=== PATIENT | male | born 1965 | race Caucasian/White ===

== ENCOUNTER 2017-12-20 12:39 | Emergency (ER) | payer OTHER ==
[~2017-12-20] VITALS: Ht 177.8 cm; Wt 81.7 kg
== END 2017-12-20 13:17 | disposition home or self-care (01) ==
LOC: ED 12:39
DX: M79.671 Pain in right foot (principal); M79.672 Pain in left foot; G89.29 Other chronic pain

== ENCOUNTER → 2020-06-17 | Emergency (ER) | payer OTHER ==
[~2020-06-17] VITALS: Ht 177.8 cm; Wt 81.7 kg
[~2020-06-17] MED LIST: FLOVENT HFA12 G1 INH; RISPERDAL1 MG PO; TRAZODONE HCL50 MG PO
== END ==
LOC: ED 16:05
DX: Z00.8 Encounter for other general examination (principal); I10 Essential (primary) hypertension; F17.200 Nicotine dependence, unspecified, uncomplicated; Z91.018 Allergy to other foods; Z79.899 Other long term (current) drug therapy
CPT/HCPCS: 80053; 80176; 81001; 84443; 85025; 99283; G0480

== ENCOUNTER 2020-06-19 17:42 | Emergency (ER) | payer OTHER ==
[~2020-06-19] VITALS: Ht 177.8 cm; Wt 81.7 kg
[~2020-06-19 17:42] MED LIST changes: -RISPERDAL1 MG PO; -TRAZODONE HCL50 MG PO
--- OUTSIDE RECORDS SUMMARY | 2020-06-19 17:44 | XMS ---
PreManage Notification: CHRISTIANO SCHRADER Security [employer] Events No recent Security Events currently on file CRITERIA MET - [facility] - 2 Visits in 30 Days CARE PROVIDERS There are no care providers on record at this time. William has no Care Guidelines for this patient. [place] [facility] MO[facility] NOTE: Visits indicate total known visits. ED/C VISIT TRACKING (12 MO.) 06/19/2020 17:[address] [facility] [place] TYPE: Emergency COMPLAINT: - MEDICAL CLEARANCE 06/17/2020 16:05 [facility] [place] TYPE: Emergency COMPLAINT: - MEDICAL CLEARANCE INPATIENT VISIT TRACKING (12 MO.) No inpatient visits to display in this time frame [email or web address]
[2020-06-19] MEDS ORDERED: RISPERDAL1 MG PO (17:58)
[2020-06-19] MEDS ORDERED: TRAZODONE HCL50 MG PO (17:58)
== END 2020-06-19 21:16 | disposition short-term general hospital (02) ==
LOC: ED 17:42
DX: F20.9 Schizophrenia, unspecified (principal); I10 Essential (primary) hypertension; J45.909 Unspecified asthma, uncomplicated; F17.200 Nicotine dependence, unspecified, uncomplicated; Z91.018 Allergy to other foods; Z79.899 Other long term (current) drug therapy
CPT/HCPCS: 80053; 81001; 85025; 99285; G0480

== ENCOUNTER 2021-06-20 12:49 | Emergency (ER) | payer OTHER ==
[~2021-06-20] VITALS: Ht 177.8 cm; Wt 91.2 kg
[~2021-06-20 12:49] MED LIST changes: +RISPERDAL1 MG PO; +TRAZODONE HCL50 MG PO
--- OUTSIDE RECORDS SUMMARY | 2021-06-20 12:52 | XMS ---
PreManage Notification: CHRISTIANO SCHRADER Security Attending Physician Events No recent Security Events currently on file CRITERIA MET - - 2 Visits in 30 Days CARE PROVIDERS Alfred Mckeon DO [facility] Current PHONE: [phone] William has no Care Guidelines for this patient. [place] VISIT COUNT (12 MO.) 2 [facility] TOTAL 2 NOTE: Visits indicate total known visits. ED/UCC VISIT TRACKING (12 MO.) 06/20/2021 12:49 [facility] [place] TYPE: Emergency COMPLAINT: - MEDICAL CLEARANCE 06/15/2021 15:20 [facility] [place] TYPE: Emergency COMPLAINT: - MEDICAL CLEARANCE - [facility] INPATIENT VISIT TRACKING (12 MO.) No inpatient visits to display in this time frame [email or web address]
--- NOTE | 2021-06-20 18:57 | EKG ---
[facility] [address] [place] [address] Signed Normal sinus rhythm Moderate voltage criteria for LVH, may be normal variant Borderline ECG When compared with ECG of 12-MAR-2020 09:02, Vent. rate has increased BY 30 BPM Confirmed by DEBRA DUMONT MD ([id number]) on 06/20/2021 6:57:20 PM Electronically Signed By: DEBRA DUMONT MD 06/20/21 1857 PATIENT NAME: REEDHELENCHRISTIANO Electrocardiogram DATE OF : 65 PHYSICIAN: DEBRA DUMONT MD REPORT #: [id number] REPORT IS CONFIDENTIAL AND NOT TO BE RELEASED WITHOUT AUTHORIZATION
== END 2021-06-21 10:18 | disposition short-term general hospital (02) ==
LOC: ED 12:49
DX: F32.A Depression, unspecified (principal); R45.851 Suicidal ideations; D72.829 Elevated white blood cell count, unspecified; E87.6 Hypokalemia; I10 Essential (primary) hypertension; J45.909 Unspecified asthma, uncomplicated; Y90.0 Blood alcohol level of less than 20 mg/100 ml; F17.200 Nicotine dependence, unspecified, uncomplicated; Z20.822 Contact with and (suspected) exposure to COVID-19; Z91.018 Allergy to other foods; Z79.899 Other long term (current) drug therapy
CPT/HCPCS: 80053; 81001; 84443; 85025; 93005; 93010; 99285-25; C9803; G0480; U0003